=== PATIENT | female | born 1955 | race Caucasian/White ===

== ENCOUNTER 2021-08-18 12:17 | Outpatient (CLI) | payer MEDICARE | END 2021-08-18 12:18 | disposition home or self-care (01) | LOC: CSHMAMMO 12:17 | PROVIDERS: ATTEND Internal Medicine | DX: Z12.31 Encounter for screening mammogram for malignant neoplasm of breast (principal) | CPT/HCPCS: 77063; 77067 ==

== ENCOUNTER 2021-12-22 15:54 | Outpatient (CLI) | payer MEDICARE | END 2021-12-22 15:55 | disposition home or self-care (01) | LOC: CSHCT 15:54 | PROVIDERS: ATTEND Otolaryngology Plastic Surgery within the Head & Neck | DX: H90.3 Sensorineural hearing loss, bilateral (principal); H74.8X2 Other specified disorders of left middle ear and mastoid | CPT/HCPCS: 70480 ==

== ENCOUNTER 2022-03-14 12:06 | Outpatient (CLI) | payer MEDICARE ==
[2022-03-14 13:17] LABS: Anion Gap 12 mmol/L (10-20); BUN (Urea Nitrogen) 12 mg/dL (9.8-20.1); Calc. Creatinine Clearance 0 mL/min (70-130); Calcium 9.6 mg/dL (7.8-10.44); Carbon Dioxide 28 mmol/L (23-31); Chloride 106 mmol/L (98-107); Estimated GFR 81; Glucose 91 mg/dL (80-115); Potassium 4.6 mmol/L (3.5-5.1); Sodium 141 mmol/L (136-145)
== END 2022-03-14 12:07 | disposition home or self-care (01) ==
LOC: CSHLAB 12:06
PROVIDERS: ATTEND Otolaryngology Plastic Surgery within the Head & Neck
DX: Z01.818 Encounter for other preprocedural examination (principal); Z20.822 Contact with and (suspected) exposure to COVID-19; H90.A21 Sensorineural hearing loss, unilateral, right ear, with restricted hearing on the contralateral side
CPT/HCPCS: 80048; 85014; 85018; 87811; 93005; 93010

== ENCOUNTER 2022-03-18 08:32 | Day surgery (SDC) | payer MEDICARE ==
[2022-03-16 13:33] VITALS: BMI 25.0
[~2022-03-18 08:32] MED LIST: Lidocaine 4% PF 5 ML AMP ONE
[2022-03-18] MEDS ORDERED: Lidocaine 1% MPF 2 ML VIAL ONE (09:33)
[2022-03-18] MEDS ORDERED: PROPOFOL 20 ML ONE (09:40)
[2022-03-18] MEDS ORDERED: Fentanyl 250 MCG/5 ML VIAL ONE (09:40)
[2022-03-18] MEDS ORDERED: Midazolam HCl 2 mg/2 ml Vial ONE (09:40)
[2022-03-18] MEDS ORDERED: Lidocaine 1% PF 5 ML VIAL ONE (09:40)
[2022-03-18] MEDS ORDERED: Ondansetron PF 4 MG/2 ML Vial ONE (09:41)
[2022-03-18] MEDS ORDERED: EPINEPHrine 1 MG/ML AMP ONE (09:41)
[2022-03-18] MEDS ORDERED: Mupirocin 2% Ointment 22 GM Tube ONE (09:41)
[2022-03-18] MEDS ORDERED: Rocuronium Bromide 10 MG/ML (10ML VIAL) ONE (09:41)
[2022-03-18] MEDS ORDERED: CEFAZOLIN 1 GM VIAL ONE (09:57)
[2022-03-18] MEDS ORDERED: Lidocaine 1% w/Epinephrine 1:100K 20 ML VIAL ONE (10:25)
[2022-03-18] MEDS ORDERED: Fentanyl 100 MCG/2 ML VIAL ONE (12:47)
[2022-03-18] MEDS ORDERED: HYDROcodone/Acetaminophen 5/325 mg Tablet ONE (14:12)
== END 2022-03-18 14:45 | disposition home or self-care (01) ==
LOC: CSHSDC 08:32
PROVIDERS: ATTEND Otolaryngology Plastic Surgery within the Head & Neck
PROC: 09HD05Z Insertion of Single Channel Cochlear Prosthesis into Right Inner Ear, Open Approach (ICD-10-PCS; principal; 2022-03-18)
DX: H90.A21 Sensorineural hearing loss, unilateral, right ear, with restricted hearing on the contralateral side (principal); E03.9 Hypothyroidism, unspecified; E78.5 Hyperlipidemia, unspecified; Z79.890 Hormone replacement therapy; Z79.899 Other long term (current) drug therapy
CPT/HCPCS: 69930; 70250; L8614 ×2; J0171; J0690; J2250; J2405; J2704; J3010; Q9968